=== PATIENT | male | born 2000 | race Caucasian/White ===

== ENCOUNTER 2019-03-21 17:15 | Emergency (ER) | payer BC ==
[2019-03-21] MEDS ORDERED: 0.9 % SODIUM CHLORIDE 1,000 ML BAG IV ONE (17:40)
[2019-03-21] MEDS ORDERED: KETOROLAC 30 MG/ML VIAL IVP ONE (17:40)
--- NOTE | 2019-03-21 17:44 | Emergency Department Record ---
History of Present Illness - General Chief complaint: Flank Pain Stated complaint: SHARP PAIN LT SIDE Time Seen by Provider: 03/21/19 17:20 Source: Patient, Family Mode of Arrival: Ambulatory Limitations: No limitations - History of Present Illness Initial comments: 18 yo male presents with left sided pain. The onset was about 4 days ago. The pain is sharp. He feels like it is sore to touch that area, hurts to cough, move, bend over, take deep breaths. He denies any injury. No fever. No nausea, vomiting, diarrhea. No rash. No prior history of the same in the past. He has a cough but tries to not cough due to the discomfort. He was seen on 03/17/19 in the ED at [facility]. CXR was performed at that time that was negative. He states he has otherwise been in his usual state of health. Complaint: Other Onset/Timin -: Days(s) Location: Left flank Radiation: LUQ Severity: Moderate Quality: Aching, Stabbing Consistency: Constant Improves with: Rest Worsens with: Movement Other Reports: Denies other symptoms - Related Data Home Medications Medication Instructions Recorded Confirmed Last Taken Ibuprofen [Motrin] 800 mg PO DAILY 03/21/19 03/21/19 03/21/19 Magnesium 200 mg PO QHS 03/21/19 03/21/19 03/20/19 Multivitamin [Daily Multiple 1 each PO DAILY 03/21/19 03/21/19 03/21/19 Vitamin] Previous Rx's Medication Instructions Recorded Naproxen [Naprosyn] 500 mg PO Q12H #20 tab. 03/21/19 Allergies Allergy/AdvReac Type Severity Reaction Status Date / Time amoxicillin Allergy HIVES Verified 03/21/19 17:32 Travel/Exposure Screening - Travel/Exposure Within Last 30 Days Have you traveled within the last 30 days?: No - Travel/Exposure Within Last Year Have you traveled outside the [place] in the last year?: No - Additonal Travel/Exposure Details Have you been exposed to anyone with a communicable illness?: No Review of Systems Constitutional: Denies: Chills, Fever, Malaise, Weakness Eyes: Denies: Eye discharge ENT: Denies: Congestion, Throat pain Respiratory: Reports: Cough. Denies: Dyspnea, Hemoptysis, Wheezes Cardiovascular: Reports: Chest pain. Denies: Edema, Palpitations, Syncope Endocrine: Denies: Fatigue, Polydipsia, Polyuria Gastrointestinal: Denies: Abdominal pain, Diarrhea, Nausea, Vomiting Genitourinary: Denies: Dysuria, Frequency, Hematuria Musculoskeletal: Reports: Back pain (chronic). Denies: Arthralgia, Myalgia Skin: Denies: Bruising, Change in color, Rash Neurological: Denies: Headache, Numbness, Weakness Psychiatric: Denies: Anxiety Hematological/Lymphatic: Denies: Easy bleeding, Easy bruising Past Medical History - SOCIAL HISTORY Smoking Status: Current every day smoker Alcohol Use: None Drug Use: Heavy Drug Use Detail:: Marijuana - RESPIRATORY Hx Respiratory Disorders: Yes Hx Asthma: Yes - CARDIOVASCULAR Hx Cardio Disorders: No - NEURO Hx Neuro Disorders: No - GI Hx GI Disorders: Yes Hx Ulcer: Yes - Hx Genitourinary Disorders: No - ENDOCRINE Hx Endocrine Disorders: No - MUSCULOSKELETAL Hx Musculoskeletal Disorders: Yes - PSYCH Hx Psych Problems: No - HEMATOLOGY/ONCOLOGY Hx Hematology/Oncology Disorders: No Family Medical History Any Significant Family History?: No Hx Depression: Brother/Sister Hx Heart Disease: Father Hx HTN: Father Hx Kidney Disease: Mother Hx Seizures: Brother/Sister Physical Exam - General General Appearance: Alert, Oriented x3, Cooperative, No acute distress Limitations: No limitations - Head Head exam: Atraumatic, Normal inspection - Eye Eye exam: Normal appearance, PERRL. negative: Conjunctival injection, Scleral icterus - ENT ENT exam: Normal exam, Mucous membranes moist Ear exam: Normal external inspection Nasal Exam: Normal inspection Mouth exam: Normal external inspection - Neck Neck exam: Normal inspection - Respiratory Respiratory exam: Normal lung sounds bilaterally, Chest wall tenderness (tender lower left ribs). negative: Accessory muscle use, Decreased breath sounds, Prolonged expiratory, Respiratory distress, Rhonchi, Stridor, Wheezes - Cardiovascular Cardiovascular Exam: Regular rate, Normal rhythm, Normal heart sounds Peripheral Pulses: 2+: Radial (R), Radial (L) - GI/Abdominal GI/Abdominal exam: Soft, Tenderness (Tender left upper quadrant under the ribs). negative: Distended, Guarding, Rebound, Rigid - Rectal Rectal exam: Deferred - exam: Deferred - Extremities Extremities exam: Normal inspection. negative: Calf tenderness, Pedal edema, Tenderness - Back Back exam: Reports: CVA tenderness (L), Tenderness. Denies: CVA tenderness (R), Paraspinal tenderness, Vertebral tenderness - Neurological Neurological exam: Alert, Oriented X3 - Psychiatric Psychiatric exam: Normal affect, Normal mood. negative: Agitated, Anxious - Skin Skin exam: Dry, Intact, Normal color, Warm Course Vital Signs 03/21/19 17:22 Temperature 98.3 F Pulse Rate 98 H Respiratory 16 Rate Blood Pressure 134/95 Pulse Ox 100 - Reevaluation(s) Reevaluation #1: 03/21/19 17:54 [facility] was reviewed The CXR on 03/17/19 was normal 03/21/19 18:17 The CBC and UA are normal 03/21/19 18:18 CTA was ordered and discussed with the patient. 03/21/19 18:40 The BMP was reviewed and is normal 03/21/19 19:[address] scan was reviewed. No acute process in the chest or upper abdomen. We discussed the results of the tests and questions were answered. The patient is doing well and is comfortable with DC. We discussed at length reasons to immediately return to the ED as well as close follow up. The patient will call the PCP for close follow up of this ED visit to review this visit and the tests performed DC vitals were reviewed. The patient was given a copy of the radiology reports to review with their family doctor for follow up Medical Decision Making - Lab Data Result diagrams: 03/21/19 17:52 03/21/19 17:52 Disposition Disposition: Discharge Clinical Impression: Pleuritic chest pain, Left upper quadrant abdominal pain of unknown etiology Disposition: Home, Self-Care Condition: (1) Good Instructions: Abdominal Pain (ED), Pleurisy (ED) Additional Instructions: Review this ER visit and the tests performed with your family doctor Call your doctor for the next available follow up appointment this week Return to the ER for a recheck immediately if worse, any new concerns or questions Take the prescriptions provided as directed Prescriptions: Naproxen [Naprosyn] 500 mg PO Q12H #20 tab.dr Forms: Patient Portal Access Time of Disposition: 19:29 Quality - Quality Measures Quality Measures: N/A - Blood Pressure Screening Does Patient Have Any of the Following: No Blood Pressure Classification: Hypertensive Reading Systolic Measurement: 134 Diastolic Measurement: 95 Screening for High Blood Pressure: < Pre-Hypertensive BP, F/U Documented > [G8950] Pre-Hypertensive Follow-up Interventions: Referral to alternative/primary care provider.
[2019-03-21 18:02] LABS: URINE APPEARANCE CLEAR; URINE BILIRUBIN NEGATIVE (NEGATIVE); URINE BLOOD NEGATIVE (NEGATIVE); URINE COLOR YELLOW; URINE GLUCOSE (UA) NEGATIVE (NEGATIVE); URINE KETONE NEGATIVE (NEGATIVE); URINE LEUKOCYTE ESTERASE NEGATIVE (NEGATIVE); URINE NITRITE NEGATIVE (NEGATIVE); URINE PROTEIN NEGATIVE (NEGATIVE); URINE UROBILINOGEN 0.2 E.U./dL (0.20 - 1.00)
[2019-03-21 18:04] LABS: ABSOLUTE NEUTROPHIL COUNT 9.42; BASO % 0.2 % (0-6); EOS % 0.8 % (0-6); HEMATOCRIT 42.8 % (42.0-52.0); HEMOGLOBIN 14.8 gm/dl (14.0-18.0); LYMPH % 15.7 % (16-45); MEAN CELL VOLUME 84.9 fl (81-97); MEAN CORPUSCULAR HEMOGLOBIN 29.4 pg (27-33); MEAN CORPUSCULAR HGB CONC 34.6 g/dl (32-36); MEAN PLATELET VOLUME 8.7 fl (7.4-10.4); MONO % 5.3 % (0-9); PLATELET COUNT 316 K/uL (130-400); RED BLOOD COUNT 5.04 M/uL (4.40-5.70); RED CELL DISTRIBUTION WIDTH 12.1 % (11.5-14.5); WHITE BLOOD COUNT W/O DIFF 12.1 K/uL (4.2-12.2)
[2019-03-21 18:17] LABS: BLOOD UREA NITROGEN 10 mg/dL (6-20); CREATININE 0.8 mg/dL (0.7-1.2)
[2019-03-21 18:18] LABS: GLUCOSE,RANDOM 135 mg/dL (74-109)
--- NOTE | 2019-03-21 19:14 | CT ANGIOGRAM REPORT ---
EXAMINATION: CT Angiography of the Thorax EXAM DATE: 03/21/2019 7:04 PM TECHNIQUE: Standard protocol CT angiogram images were obtained through the chest following the admini stration of intravenous contrast. Coronal and sagittal MIP 3-D reformations were performed. IV Contrast: The amount and type of contrast are recorded in the medical record. INDICATION: pain with inspiration, chest pain, elevated D-dime. COMPARISON: None ENCOUNTER: Not applicable FINDINGS: Pulmonary Artery: No pulmonary embolism is present. Aorta: No thoracic aortic aneurysm or dissection is present. Right Heart Strain: None. Heart : There is no pericardial effusion. Nara and Mediastinum: No lymphadenopathy. Lung Parenchyma: Normal. Central Airways: Normal. Pleural Effusion: None. Upper Abdomen: Unremarkable. Musculoskeletal and Chest Wall: Unremarkable. IMPRESSION: 1. No acute intrathoracic process. No PE or thoracic aortic dissection. Dictated by: Xu Chapa MD on 03/21/2019 7:11 PM. .
== END 2019-03-21 19:39 | disposition home or self-care (01) ==
LOC: ER 17:15
DX: R07.81 Pleurodynia (principal); R10.12 Left upper quadrant pain; R79.89 Other specified abnormal findings of blood chemistry; F17.210 Nicotine dependence, cigarettes, uncomplicated
CPT/HCPCS: 99284 ×2; 96374; 85025; 80048; 81003; 85379; 71275; Q9967; J1885; J7030